=== PATIENT | male | born 1975 | race Caucasian/White ===

== ENCOUNTER 2023-07-23 11:50 | Emergency (ER) | payer MEDICAID ==
[~2023-07-23] VITALS: Ht 152.4 cm; Wt 65.9 kg
[2023-07-23 11:51] VITALS: TEMP 98.6
[2023-07-23] MEDS ORDERED: HYDROCODONE/ACETAMINOPHEN 5-325 MG TABLET PO ONE (13:15)
[2023-07-23] MEDS ORDERED: KETOROLAC TROMETHAMINE 60 MG/2 ML VIAL IM ONE (13:15)
[2023-07-23] MEDS ORDERED: METHOCARBAMOL 500 MG TABLET PO ONE (13:15)
[2023-07-23] MEDS ORDERED: METH-812 PO (14:44)
[2023-07-23] MEDS ORDERED: HYDR-4072 PO (14:44)
[2023-07-23] MEDS ORDERED: IBUP-1554 PO (14:44)
[2023-07-23] MEDS ORDERED: POLY238P PO (14:47)
[2023-07-23 15:41] VITALS: BP 126/73; PULSE 76; RESP 18
== END 2023-07-23 16:04 | disposition home or self-care (01) ==
LOC: EMS 11:52
DX: S39.012A Strain of muscle, fascia and tendon of lower back, initial encounter (principal); X58.XXXA Exposure to other specified factors, initial encounter; Y93.89 Activity, other specified; Y92.89 Other specified places as the place of occurrence of the external cause; Y99.8 Other external cause status
CPT/HCPCS: 99283; 96372; J1885

== ENCOUNTER 2025-01-01 17:11 | Emergency (ER) | payer MEDICAID, OTHER ==
[~2025-01-01] VITALS: Ht 157.5 cm; Wt 61.4 kg
[~2025-01-01 17:11] MED LIST: HYDR-4072 PO; IBUP-1554 PO; METH-812 PO; POLY238P PO
[2025-01-01 17:12] VITALS: BP 148/86; PULSE 74; RESP 18; TEMP 98.5; O2SAT 100
[2025-01-01] MEDS: LIDOCAINE 5% TRANSDERMAL PATCH TD ONE (18:02)
[2025-01-01] MEDS: KETOROLAC TROMETHAMINE 30 MG/ML VIAL IM ONE (18:03)
[2025-01-01] MEDS: ACETAMINOPHEN 325 MG TABLET PO ONE (18:03)
[2025-01-01] MEDS ORDERED: IBUP-1492 PO (18:19)
[2025-01-01] MEDS ORDERED: LIDO700A15 TP (18:19)
[2025-01-01] MEDS ORDERED: ACET-2247 PO (18:19)
== END 2025-01-01 19:03 | disposition home or self-care (01) ==
LOC: EMS 17:11
DX: S39.012A Strain of muscle, fascia and tendon of lower back, initial encounter (principal); X58.XXXA Exposure to other specified factors, initial encounter; Y93.89 Activity, other specified; Y92.89 Other specified places as the place of occurrence of the external cause; Y99.8 Other external cause status
CPT/HCPCS: 99283; 73502; 96372; J1885

== ENCOUNTER 2025-04-04 16:40 | Emergency (ER) | payer OTHER ==
[~2025-04-04] VITALS: Ht 157.5 cm; Wt 69.5 kg
[~2025-04-04 16:40] MED LIST changes: +ACET-2247 PO; +IBUP-1492 PO; +LIDO-57 TP
[2025-04-04 16:41] VITALS: TEMP 98.5
[2025-04-04 17:07] LABS: EOSINOPHILS % (AUTO) 1.2 % (1.0-6.0); HEMATOCRIT 41.9 % (41-53); HEMOGLOBIN 14.6 g/dL (13.5-17.5); LYMPHOCYTES # (AUTO) 3.5 K/uL (1.0-4.8); LYMPHOCYTES % (AUTO) 35.9 % (22.0-44.0); MEAN CORPUSCULAR HEMOGLOBIN 29.7 pg (26.0-34.0); MEAN CORPUSCULAR HGB CONC 34.8 G/dL (31.0-37.0); MEAN CORPUSCULAR VOLUME 85 fL (80-100); MONOCYTES # (AUTO) 0.8 K/uL (0.1-1.0); MONOCYTES % (AUTO) 8.4 % (2.0-9.0); NEUTROPHILS # (AUTO) 5.3 K/uL (1.8-7.7); NEUTROPHILS % (AUTO) 53.5 % (40.0-70.0); PLATELET COUNT (AUTO) 278 K/uL (150-450); RED BLOOD CELL COUNT(AUTO) 4.91 MIL/uL (4.50-5.90); RED CELL DISTRIBUTION WIDTH 12.6 % (11.5-14.5); WHITE BLOOD COUNT (AUTO) 9.8 K/uL (4.5-11.0)
[2025-04-04 17:18] LABS: ANION GAP 8 mmol/L (8-16); CALCIUM, TOTAL 8.6 mg/dL (8.8-10.5); CARBON DIOXIDE 28 mmol/L (22-29); CHLORIDE 104 mmol/L (98-107); CREATININE 1.29 mg/dL (0.60-1.30); GLOMERULAR FILTR. RATE CALC 59 mL/min (>60); GLUCOSE,RANDOM 103 mg/dL (70-110); POTASSIUM 3.9 mmol/L (3.5-5.1); SODIUM SERUM 140 mmol/L (136-145); UREA NITROGEN, BLOOD 19 mg/dL (7-18)
[2025-04-04 17:29] LABS: TROPONIN I-HIGH SENSITIVITY 9 ng/L (<76)
[2025-04-04] MEDS: IBUPROFEN 400 MG TABLET PO ONE (17:53)
[2025-04-04] MEDS: ACETAMINOPHEN 500 MG TABLET PO ONE (17:53)
[2025-04-04] MEDS: methocarbamoL 500 MG TABLET PO ONE (17:53)
[2025-04-04 18:19] VITALS: BP 157/98; PULSE 70; RESP 18; O2SAT 96
[2025-04-04] MEDS ORDERED: METH-812 PO (18:31)
== END 2025-04-04 18:48 | disposition home or self-care (01) ==
LOC: EMS 16:42
DX: R07.89 Other chest pain (principal)
CPT/HCPCS: 71045; 80048; 82962; 84484; 85025; 93005; 99285; 36415-L1; 36415-TC